=== PATIENT | female | born 1985 | race Caucasian/White ===

== ENCOUNTER 2021-07-22 14:20 | Emergency (ER) | payer OTHER, BC ==
--- NOTE | 2021-07-22 14:45 | EDM.PDOC ---
ED HPI GENERAL MEDICAL PROBLEM - General Chief Complaint: Laceration Stated Complaint: LACERATION TO RIGHT HAND Time Seen by Provider: 07/22/21 14:50 - History of Present Illness INITIAL COMMENTS - FREE TEXT/NARRATIVE: History of present illness: [] Just prior to arrival patient had her dominant right hand under a piece of heavy equipment on the well in the moving part came down and smashed her right thumb. She denies any other injury. She has trouble flexing and extending because of the pain. There is a laceration as well. The patient cannot member her last tetanus shot. She smokes but she is not diabetic and does not have any other reason what it would be any circulatory issues. Review of systems: As per history of present illness and below otherwise all systems reviewed and negative. Past medical history: As per history of present illness and as reviewed below otherwise noncontributory. Surgical history: As per history of present illness and as reviewed below otherwise noncontributory. Social history: No reported history of drug or alcohol abuse. Family history: As per history of present illness and as reviewed below otherwise noncontributory. Physical exam: Constitutional - well developed, well-nourished and in no acute distress HEENT - normocephalic, no evidence of trauma - external nose and mouth normal - no mass in neck and no JVD - mucosae moist EYES - full EOM, PERRL, no icterus - no evidence of inflammation, injection, or drainage Respiratory - no respiratory distress, equal bilateral expansion Musculoskeletal there is tenderness of the proximal segment of the thumb and carey ited extension and flexion secondary to pain but she does have some extension and flexion at the MPJ and the IPJ. No gross deformity of long bones or joints - no tenderness, swelling or edema Neurologic - Alert and oriented times four - CN II-XII grossly intact - motor sensory and coordination symmetrically normal Psychiatric - appropriate mood and affect with normal thought content Hematologic - No petechiae or purpura - mucosa appropriate color and sclera not pale - normal nail bed color and refill Integument -2.5 cm laceration vertically along the ulnar edge of the thumb from the proximal section of the proximal segment to the distal section of the distal segment of the thumb. No rash or evidence of trauma - normal turgor Diagnostics: [] Therapeutics: [] Impression: [] Plan: [] Definitive disposition and diagnosis as appropriate pending reevaluation and review of above. left thumb Pain Score (Numeric/FACES): 8 - Related Data Allergies Allergy/AdvReac Type Severity Reaction Status Date / Time No Known Allergies Allergy Verified 07/22/21 14:32 Home Meds: Home Meds Vortioxetine Hydrobromide [Brintellix] 10 mg PO DAILY 07/22/21 [History] cephALEXin [Cephalexin] 500 mg PO BID #10 capsule 07/22/21 [Rx] Past Medical History Psychiatric History: Reports: Depression - Infectious Disease History Infectious Disease History: Reports: Chicken Pox - Past Surgical History HEENT Surgical History: Reports: Oral Surgery Social & Family History - Family History Family Medical History: No Pertinent Family History - Tobacco Use Tobacco Use Status *Q: Current Every Day Tobacco User Years of Tobacco use: 15 Packs/Tins Daily: 0.5 - Alcohol Use Days Per Week of Alcohol Use: 1 Number of Drinks Per Day: 1 Total Drinks Per Week: 1 - Recreational Drug Use Recreational Drug Use: No ED ROS GENERAL - Review of Systems Review Of Systems: Comprehensive ROS is negative, except as noted in HPI. ED EXAM, SKIN/RASH Exam: See Below Text/Narrative:: My physical exam is in the HPI ED SKIN PROCEDURES - Laceration/Wound Repair Right Hand Appearance: Subcutaneous Distal NVT: Neuro & Vascular Intact Anesthetic Type: Local Local Anesthesia - Lidocaine (Xylocaine): 1% Plain Local Anesthetic Volume: Other (10 cc) Skin Prep: Providone-Iodine (Betadine), Saline Saline Irrigation (cc's): 500 Exploration/Debridement/Repair: Wound Explored, In a Bloodless Field Closed with: Sutures Lac/Wound length In cm: 2.5 Suture Size: 4-0 # of Sutures: 4 Suture Type: Nylon, Simple Course - Vital Signs Text/Narrative:: I discussed the case with Dr. Rush because of the fact that there is a possible open fracture nondisplaced of the distal phalanx. He said go and put the patient on antibiotics and have her call and they will follow up promptly in the office. DME-a splint applied to the thumb to keep the fracture from the coming displaced. She needs that for at least 3 days. Diagnosis is open fracture of the thumb. Neurovascular structures integrity verified after the splint. Last Recorded V/S: Last Vital Signs Temp 37.1 C 07/22/21 14:24 Pulse 105 H 07/22/21 14:24 Resp 18 07/22/21 14:24 BP 150/93 H 07/22/21 14:24 Pulse Ox 97 07/22/21 14:24 - Orders/Labs/Meds Orders: Active Orders 24 hr Category Date Time Status Vaccine to be Administered/Admin Charge [RC] ASDIRECTED Care 07/22/21 14:50 Active DME for Discharge [COMM] Stat Oth 07/22/21 16:01 Ordered Meds: Medications Discontinued Medications Generic Name Dose Route Start Last Admin Trade Name Coleen PRN Reason Stop Dose Admin Cephalexin 500 mg 07/22/21 14:50 07/22/21 15:06 Cephalexin 500 Mg Cap PO 07/22/21 14:51 500 mg ONETIME ONE Administration Diphtheria/Tetanus/Acell Pertussis 0.5 ml 07/22/21 14:49 07/22/21 15:05 Diphtheria,Pertussis(Acell),Tetanus Vaccine 0.5 Ml Syringe IM 07/22/21 14:50 0.5 ml .ONCE ONE Administration Lidocaine HCl 10 ml 07/22/21 15:08 07/22/21 15:17 Lidocaine 1% 5 Ml Sdv INJECT 07/22/21 15:09 10 ml ONETIME ONE Administration Departure - Departure Time of Disposition: 16:04 Disposition: Home, Self-Care 01 Condition: Good Clinical Impression: Laceration of right thumb, Open fracture of distal phalanx of right thumb - Discharge Information Prescriptions: cephALEXin [Cephalexin] 500 mg PO BID #10 capsule Instructions: Laceration Care, Adult, Thumb Fracture Referrals: PCP,None [Primary Care Provider] - Dewey Rush MD [Ordering Only Provider] - Forms: ED Department Discharge Additional Instructions: Dr. Rush and Dr. Nina will follow up in the office. Call them tomorrow. [facility] [address] [place] [id number] [facility] [address] [place] [id number] The following information is given to patients seen in the emergency department who are being discharged to home. This information is to outline your options for follow-up care. We provide all patients seen in our emergency department with a follow-up referral. The need for follow-up, as well as the timing and circumstances, are variable depending upon the specifics of your emergency department visit. If you don't have a primary care physician on staff, we will provide you with a referral. We always advise you to contact your personal physician following an emergency department visit to inform them of the circumstance of the visit and for follow-up with them and/or the need for any referrals to a consulting specialist. The emergency department will also refer you to a specialist when appropriate. This referral assures that you have the opportunity for follow-up care with a specialist. All of these measure are taken in an effort to provide you with optimal care, which includes your follow-up. Under all circumstances we always encourage you to contact your private physician who remains a resource for coordinating your care. When calling for follow-up care, please make the office aware that this follow-up is from your recent emergency room visit. If for any reason you are refused follow-up, please contact the [facility] Emergency Department at and asked to speak to the emergency department charge nurse. Sepsis Event Note (ED) - Evaluation Sepsis Screening Result: No Definite Risk - Focused Exam Vital Signs: Vital Signs Temp Pulse Resp BP Pulse Ox 07/22/21 14:24 37.1 C 105 H 18 150/93 H 97 - My Orders Last 24 Hours: My Active Orders 07/22/21 14:50 Vaccine to be Administered/Admin Charge [RC] ASDIRECTED 07/22/21 16:01 DME for Discharge [COMM] Stat - Assessment/Plan Last 24 Hours: My Active Orders 07/22/21 14:50 Vaccine to be Administered/Admin Charge [RC] ASDIRECTED 07/22/21 16:01 DME for Discharge [COMM] Stat
[2021-07-22] MEDS ORDERED: Diphtheria,Pertussis(Acell),Tetanus Vaccine 0.5 ML Syringe IM ONE (14:49)
[2021-07-22] MEDS ORDERED: Cephalexin 500 MG Cap PO ONE (14:50)
--- NOTE | 2021-07-22 15:48 | CR ---
Indication: Smashed thumb with laceration, possible open fracture. Technique: Right hand 3 views. Comparison: None. Findings: There is a subtle lucency within the head of the 1st proximal phalanx which could represent a nondisplaced fracture. No dislocation. Soft tissue swelling about the 1st digit with small amounts of gas compatible with laceration. No radiopaque foreign body identified. Impression: 1. Possible nondisplaced fracture through the head of the 1st distal phalanx. 2. Soft tissue swelling and small amounts of gas about the 1st digit compatible with laceration. Dictated by Eunice Jaimes MD @ 07/22/2021 3:46:37 PM (Electronically Signed)
== END 2021-07-22 16:17 | disposition home or self-care (01) ==
LOC: MW.ED 14:20
DX: S62.521B Displaced fracture of distal phalanx of right thumb, initial encounter for open fracture (principal); S62.514B Nondisplaced fracture of proximal phalanx of right thumb, initial encounter for open fracture; Z23 Encounter for immunization; Z72.0 Tobacco use; W23.0XXA Caught, crushed, jammed, or pinched between moving objects, initial encounter
CPT/HCPCS: 12001; 73130; 90471; 90715; 99283; A9270